=== PATIENT | male | born 1960 | race Caucasian/White ===

== ENCOUNTER 2025-01-16 13:40 | Observation (INO) | payer SELFPAY ==
[2025-01-16] VITALS (12 sets, daily range): BP systolic 122–153; BP diastolic 55–76; PULSE 68–102; RESP 13–24; TEMP 36.2–37.2; O2SAT 92–98; BMI 17.4
--- NOTE | 2025-01-16 | PATH_ITS ---
[facility] Accession Number: [id number] No. of containers..01 Tissue . 01 Material submitted: . appendix - APPENDIX . 01 Diagnosis: APPENDIX, APPENDECTOMY: Acute appendicitis with perforation and serositis. No evidence of neoplasm. [facility] 01/19/2025 1135 Local . 01 Comment: As part of routine customer quality specialist, Dr. Jos Almanzar has reviewed this case and agrees there is no evidence of neoplasm. . 01 Electronically signed: . Oemr Nice MD, PhD, Pathologist NPI- [id number] . 01 Gross description: . Received in formalin with two identifiers and appendix, is a mackay, vermiform appendix, 5.5 cm in length by 1.0 cm in average diameter with adherent material consistent with exudate and firm yellow-mackay mesoappendix extending out to 1.9 cm. The margin is inked blue. The lumen averages 0.4 cm in diameter and contains clear mucoid material. The nina measure up to 0.7 cm thick with a possible perforation into the adjacent adipose with pockets of clear mucoid material confined to the adipose measuring up to 1.3 cm in greatest dimension. No mucoid material is identified on the external surface of the specimen and no lymph nodes are grossly identified. Wax Pot Tender sections are submitted as follows: . A1: Margin and entire bisected distal tip. A2-A4: Sequential nonadjacent cross-sections with possible perforation and mucoid material. ([id number]) /MRV 01/18/2025 1318 Local . 01 Pathologist provided ICD-10: K35.32 . 01 CPT . 529232 Specimen Comment: A courtesy copy of this report has been sent to [facility] Pathology Performed at: [address] [facility] [address] [address], [place], [place] [id number] MD Jos Almanzar MD Phone: [phone]
--- NOTE | 2025-01-16 13:05 | PC.NURSE ---
Day shift: Pt going directly to surgery at this time (1300). Just arrived from [facility] to ED. Going from ED ambulance entrance to OR. Pt has not been to room 223 in ACU at this time as well.
--- NOTE | 2025-01-16 13:25 | PM.HP.IH.1 ---
History of Present Illness History of Present Illness Date Patient Seen: 01/16/25 Time Patient Seen: 13:25 Chief complaint: Direct Admit from [facility] Narrative: 64yo M, transferred from [facility] for possible perforated appendicitis. Symptoms started . Presented to [facility] with abdominal pain, nausea, reduced appetite. WBC 11. CT demonstrated inflammation in RLQ, small amount of free air, appendix not visualized, possible ruptured appendicitis. Patient works in construction. Exam Const General: comfortable Orientation: alert and oriented x3 HENMT Head: normal to inspection Eyes General: appearance normal, both eyes and all related structures Conjunctivae: conjunctivae normal Sclera: sclerae normal EOM: EOM intact bilaterally Neck Neck: normal visual inspection Resp Effort & Inspection: normal respiratory effort and able to speak in complete sentences Auscultation: clear to auscultation bilaterally Cardio Rate: regular rate Rhythm: regular rhythm GI Other: +RLQ pain to palpation Extrem Other: Without pitting edema Assessment & Plan Assessment and plan (1) Acute appendicitis with rupture: Status: Acute Assessment & Plan narrative: Perforated appendicitis most likely etiology of symptoms Plan diagnostic laparoscopy, possible appendectomy, possible colectomy, possible drain. The risks, benefits and options regarding the procedure were explained to the patient in detail. Risk discussion included but not limited to: bleeding, infection, colon resection, ostomy, drain. The patient was encouraged to ask questions and they were answered to their satisfaction. The patient understands and is agreeable to proceed. Time-Based Coding :: [TOTAL MINUTES] spent with patient and on the chart (including review of chart, obtaining history, exam, reviewing outside data, placing orders, documenting exam and treatment plan, and counseling patient) on [DATE]. PROFEE Editor Managing Newspaper Document charge(s): Yes Charge Codes Initial inpatient/observation care: 26390
[2025-01-16] MEDS: LACTATED RINGERS 1,000 ML 42 ML IV (13:29)
--- NOTE | 2025-01-16 13:29 | PM.PREOP ---
Pre-operative Note Interval Note History & Physical reviewed/Exam performed by Physician: Yes Changes to H&P: No ASA Class (for procedural sedation): I
--- NOTE | 2025-01-16 14:04 | SUR.OPER ---
Supine on padded OR bed, head on pillow, left arm padded and tucked at sides, right arm secured on armboard at less than 90 degrees, legs uncrossed, safety belt at thigh.
[2025-01-16] MEDS: BUPIVACAINE 0.25% W/ EPI 30 ML VIAL 60 ML INJ (14:12)
--- NOTE | 2025-01-16 14:51 | P.OP_ITS ---
Operative Date/Time/Diagnoses Date of procedure: 01/16/25 Time of procedure: 14:51 Pre-op diagnosis: Perforated appendicitis Post-op diagnosis: same Procedure & Clinicians Procedure: Laparoscopic appendectomy, 15 Fr Munir channel drain RLQ Same procedure(s) as scheduled: Yes Indications: 64yo M, transfer from [facility], [place] concerning for ruptured appendicitis Surgeon: Tye Mercedes Click Yes if Unassisted: Yes Anesthesia Type: General Operative Notes Findings: Perforated retro-cecal acute appendicitis Closure Type: primary Specimen(s): other (appendix) Prosthetic devices, grafts, tissues, transplants, or devices: 15 Fr Munir Channel drain RLQ Applied: drain(s) Estimated Blood Loss (mL): 5 Blood products transfused: none Procedure in detail: After informed consent and satisfactory general endotracheal anesthesia the abdomen was shaved, prepped and draped in the usual sterile manner. Surgical time-out was performed to ensure we had the proper patient, position and procedure with all team members in agreement. The pneumoperitoneum was established to a pressure of 12 mmHg under direct vision using the Burrell direct trocar cutdown technique. An 0 Vicryl [id number]-vs-xxydu suture was placed in the fascia. Bilateral laparoscopic TAP blocks were placed by injecting 25 cc of 0.25% Marcaine with epinephrine into the transversus abdominis muscles bilaterally. The remaining 10 cc of local was used in the skin. The suprapubic and left lower quadrant 5 mm trocars were inserted under direct vision. The patient was placed in Trendelenburg [id number] position. There was no fluid in the right lower quadrant or pelvis. The appendix was noted to be in a retrocecal position. The terminal ileum was adherent to the cecum and the right pelvic sidewall. This was bluntly mobilized. The appendix was mobilized off of the retroperitoneum and this took considerable time and effort as the mesoappendix was densely adherent to the retroperitoneum. Great care was taken to mobilize this and avoid injuring any retroperitoneal structures. Once the mesoappendix was controlled and the appendix was isolated, the base of the appendix, although secondarily inflamed, had adequate tissue integrity for the stapler. A echelon 45 blue load stapler was utilized and this controlled the base of the appendix satisfactorily right at the base of the cecum. The appendix was then placed in an endo-pouch and removed. The appendix was noted to be perforated approximately senior care down its length into the retroperitoneum and was contained. With this, the right lower quadrant was suctioned dry and the staple line was satisfactory upon inspection and there was no bleeding noted. There was no irrigation required during the procedure. A Munir channel drain was coursed through the suprapubic trocar site and extended from the pelvis along the appendix base and along the right paracolic gutter to reduce the risk for postoperative abscess. This was secured to the skin using 3-0 nylon interrupted. This was connected to bulb suction. The appendix was placed into an endo-pouch and removed. The pneumoperitoneum was released, the trocars were removed, there was no bleeding noted at the trocar sites. The 0 Vicryl suture was tied at the fascia. The remainder of the Marcaine was injected into the fascia. The skin incisions were irrigated with Betadine solution to reduce the risk for infection. The skin incisions were closed using 4-0 Monocryl in a subcuticular manner. A drain sponge was applied to the drain exit site. Dermabond glue was applied as a final dressing. The estimated blood loss was minimal. The instrument sponge and needle counts were all correct x2. The patient tolerated the procedure well and was hemodynamically stable throughout and was extubated in the operating room and transported to the recovery area in stable condition. Complications: none Post-operative Condition: stable Disposition: PACU Plan for aftercare: PACU, then acute care
[2025-01-16] MEDS: ONDANSETRON 4 MG/2 ML INJ IV (15:06)
[2025-01-16] MEDS: OXYCODONE/ACETAMINOPHEN 5/325 TABLET 1 TAB PO (15:07)
[2025-01-16] MEDS: ACETAMINOPHEN 325 MG TABLET 650 MG PO ×2 (15:41→20:49)
[2025-01-16] MEDS: PIPERACILLIN/TAZO 3.375 GM in SODIUM CHLORIDE 0.9% 100 ML IV ×2 (15:41→23:32)
[2025-01-16 16:25] LABS: Add Manual Diff / Slide Review NO; Hematocrit 38.5 % (41-53); Hemoglobin 13.1 g/dL (13.5-17.5); Lymphocytes Absolute Auto 300 /uL (1100-4500); Mean Corpuscular HGB Conc 34.1 % (30-36); Mean Corpuscular Hemoglobin 31.5 PG (26-34); Mean Corpuscular Volume 92.5 fL (80-100); Platelet Count 213 X10^3/uL (150-400)
[2025-01-16] MEDS: HYDROCODONE/ACET 5/325 TABLET 1 TAB PO ×2 (18:42→23:35)
[2025-01-16] MEDS: HEPARIN 5,000 UNIT/ML VIAL 5000 UNIT SUBCUT (20:49)
[2025-01-17 02:42] VITALS: BP 132/74; PULSE 72; RESP 16; O2SAT 93
[2025-01-17] MEDS: PIPERACILLIN/TAZO 3.375 GM in SODIUM CHLORIDE 0.9% 100 ML IV (07:02)
--- NOTE | 2025-01-17 07:12 | PM.PN.IH.1 ---
Subjective Subjective Date Patient Seen: 01/17/25 Time Patient Seen: 07:13 Interval history: POD#1 lap appy for perforated appendicitis, focal cavity, not generalized peritonitis AVSS Tolerating regular diet Exam Vital Signs (past 8 hours): - 01/17/25 02:42 Pulse Rate 72 Respiratory Rate 16 Blood Pressure 132/74 Pulse Oximetry 93 Oxygen Delivery Method Room Air Const General: comfortable Orientation: alert and oriented x3 Resp Auscultation: clear to auscultation bilaterally Cardio Rate: regular rate Rhythm: regular rhythm GI Other: ABD: soft, appropriate tenderness, incisions CDI, drain with thin serosang, non-purulent fluid Extrem Other: EXT: Without pitting edema Objective Labs 01/16/25 16:15 Labs: Laboratory Results - last 24 hr 01/16/25 16:15 WBC 11.6 H RBC 4.16 L Hgb 13.1 L Hct 38.5 L MCV 92.5 MCH 31.5 MCHC 34.1 RDW 13.0 Plt Count 213 Neut % (Auto) 93.5 H Lymph % (Auto) 2.6 L [place] % (Auto) 2.8 L Eos % (Auto) 0.2 L Baso % (Auto) 0.9 Neut # (Auto) 01936 H Lymph # (Auto) 300 L [place] # (Auto) 300 Eos # (Auto) 0 Baso # (Auto) 100 PFSH Social History household members: spouse Smoking Status: Former smoker alcohol intake: current Assessment & Plan Assessment and plan (1) Acute appendicitis with rupture: Status: Acute Assessment & Plan narrative: POD#1 lap appy for perforated appendicitis Home today PO Augmentin to complete 7 days F/U in office on Friday01/19/25 for drain removal Regular diet Shower OK No lifting restrictions Miralax prn for daily BM Call for f/c, n/v, increased abdominal pain Time-Based Coding :: [TOTAL MINUTES] spent with patient and on the chart (including review of chart, obtaining history, exam, reviewing outside data, placing orders, documenting exam and treatment plan, and counseling patient) on [DATE]. PROFEE Pad Extractor Tender Document charge(s): No Charge Codes Subsequent inpatient/observation care: 00583
[2025-01-17 08:00] VITALS: BP 156/78; PULSE 88; RESP 19; TEMP 36.6; O2SAT 94
--- NOTE | 2025-01-17 11:45 | CM.DANOTE ---
B DCP Note pt is 64yo M POD1 lap appt. PCP none listed Payer self pay ORNAMENTAL IRONWORKER HELPER reviewed EMR. per chart review, pt lives indep in [facility] with partner Laura. direct admit from [facility]. per chart, dc today. ORNAMENTAL IRONWORKER HELPER attempted to meet with pt in room, already left for home. P: dc today with spouse support, no CM needs per chart review. will continue to follow as needed KURT Hayes Discharge Planning/Care Management CM Discharge Assessment Start: 01/16/25 13:14 Freq: Status: Active Protocol: Document 01/17/25 11:41 SL (Rec: 01/17/25 11:43 SL Desktop) Discharge Planning Assessment Assigned Discharge KURT Pressley Hydrogen Plant Operator VARUN/Assigned Laura, spouse Designee Name Contact Information [phone] Advance Directives? No History Provided By Patient Prior Living House Arrangements Household Members spouse Type of Drives own vehicle transporation used prior to admit Independent with ADL Yes 's Is patient alert and Yes oriented? Discharge Plan Home Review Status In Process Please Provide Date 01/17/25 Initial DC Assessment Was Performed Next Review Type Continued Stay Review Document 01/17/25 11:44 SL (Rec: 01/17/25 11:44 SL Desktop) Discharge Planning Assessment Assigned Discharge KURT Pressley Hydrogen Plant Operator VARUN/Assigned Laura, spouse Designee Name Contact Information [phone] Advance Directives? No History Provided By Patient Prior Living House Arrangements Household Members spouse Type of Drives own vehicle transporation used prior to admit Independent with ADL Yes 's Is patient alert and Yes oriented? Discharge Plan Home Review Status In Process Please Provide Date 01/17/25 Initial DC Assessment Was Performed Next Review Type Continued Stay Review
--- NOTE | 2025-01-17 11:47 | PC.NURSE ---
Discharge Note Patient A&O, VSS, RA, no complaint of pain/discomfort. Discharge packet reviewed with patient, all questions/concerns addressed. PIV discontinued. Patient able to dress self and pack all belongings. Patient down via wheelchair to POV.
== END 2025-01-17 11:30 | disposition home or self-care (01) ==
PROVIDERS: Admitting Provider Surgery; Referring Provider Surgery; Visit Provider Surgery
PROC: 0DTJ4ZZ Resection of Appendix, Percutaneous Endoscopic Approach (ICD-10-PCS; CPT 44970; principal; 2025-01-16 14:00)
DX: K35.32 Acute appendicitis with perforation, localized peritonitis, and gangrene, without abscess (principal); K66.0 Peritoneal adhesions (postprocedural) (postinfection)
CPT/HCPCS: 44970; 85025; 99221; G0378; G0379; J1100; J1644; J1885; J2405; J2543; J2704; J3010